=== PATIENT | male | born 1960 | race Caucasian/White ===

== ENCOUNTER → 2020-10-24 10:07 | Outpatient (CLI) | payer BC, SELFPAY ==
[2020-10-25 19:00] LABS: SARS-CoV-2 RNA PCR Negative
== END ==
PROVIDERS: Internal Medicine Gastroenterology; PCP Internal Medicine; Visit Provider Internal Medicine
DX: Z20.822 Contact with and (suspected) exposure to COVID-19 (principal)
CPT/HCPCS: C9803; U0003; U0005

== ENCOUNTER → 2020-10-29 00:52 | Outpatient (CLI) | payer BC, SELFPAY ==
[2020-10-29 18:32] LABS: SARS-CoV-2 RNA PCR Negative
== END ==
PROVIDERS: PCP Internal Medicine; Visit Provider Internal Medicine Gastroenterology
DX: Z01.812 Encounter for preprocedural laboratory examination (principal); Z20.822 Contact with and (suspected) exposure to COVID-19
CPT/HCPCS: C9803; U0003; U0005

== ENCOUNTER 2020-11-01 01:33 | Day surgery (SDC) | payer BC, SELFPAY ==
[2020-10-21 12:06] VITALS: BMI 24.3
[2020-11-01 07:00] VITALS: BP 132/96; PULSE 90; RESP 20; TEMP 36.4; O2SAT 96; BMI 24.0
--- NOTE | 2020-11-01 07:14 | P.HP_ITS ---
History of Present Illness History of Present Illness Consent: Risks, benefits, and alternatives have been discussed and questions answered. Patient agrees to proceed with procedure. Chief complaint: family hx of colon CA, Neoplasm Screening Narrative: Jamel Cole is a 60 year old male here for colon cancer screening. His father from colon cancer Review of Systems Review of Systems: All systems reviewed & are unremarkable except as noted in HPI and below [facility] Social History Social History Smoking status: Never smoker Alcohol intake: never Substance use: never Substance use type: does not use Living arrangements: with family Meds Home Medications and Allergies Home Medications Medication Instructions Recorded Confirmed Type No Home Medications 10/21/20 10/21/20 History Allergies Allergy/AdvReac Type Severity Reaction Status Date / Time No Known Allergies Allergy Mild Verified 11/01/20 06:58 Vital Signs Vital Signs - 24 hr 11/01/20 07:00 Temperature 36.4 C Pulse Rate 90 Respiratory Rate 20 Blood Pressure 132/96 H Pulse Oximetry 96 Exam Resp: Auscultation: clear to auscultation bilaterally Cardio: Rate: regular rate Rhythm: regular rhythm GI: GI Palp: Yes Soft to palpation and No Tenderness to palpation present (GI) Assessment and Plan Assessment and plan (1) Colon cancer screening: Code(s): Z12.11 - Encounter for screening for malignant neoplasm of colon Status: Acute Assessment and Plan: Colonoscopy with possible biopsy or polypectomy or cautery or injection of substances.
--- NOTE | 2020-11-01 07:16 | WPDANESEPPF ---
Anes - Initial Pre Proc Eval Procedure: Operation Date: 11/01/20 08:00 Proposed Procedures p Screening Colonoscopy - Baltazar Perez MD Date/Time: 11/01/20 07:16 Surgeon: Baltazar Perez MD Pre Op Diagnosis: family hx of colon CA, Neoplasm Screening Patient Data Age: 60 Gender: M Height: 5 ft 11 in Weight: 78.4 kg Last Vital Signs Temp 36.4 C 11/01/20 07:00 Pulse 90 11/01/20 07:00 Resp 20 11/01/20 07:00 BP 132/96 H 11/01/20 07:00 Pulse Ox 96 11/01/20 07:00 Allergies Allergy/AdvReac Type Severity Reaction Status Date / Time No Known Allergies Allergy Mild Verified 11/01/20 06:58 Home Medications Medication Instructions Recorded Confirmed Type No Home Medications 10/21/20 10/21/20 History Patient hx anesthesia problems: none Family hx anesthesia problems: none [facility] Past Medical History Medical History (Updated 11/01/20 @ 07:17 by Fuad Mcgraw MD) Hepatitis C Social History Social History Smoking status: Never smoker Alcohol intake: never Substance use: never Substance use type: does not use Living arrangements: with family Anes - Eval Final PreProcedure Day of Procedure 11/01/20 07:16 Patient weight: normal Heart: regular rate and rhythm Lungs: clear to auscultation Airway: Mallampati scale class II Neurological: alert and oriented Last oral intake: >/= 8 hours ASA classification: II Emergent: no Anesthetic plan: proceed Anesthesia type and monitoring: general GIVS and standard monitoring Informed Consent: The patient's anesthetic plan and its attendant risks and benefits were discussed with the patient/family/POA. Questions were solicited and answers provided to the satisfaction of the patient/family/POA.
[2020-11-01] MEDS: LACTATED RINGERS 1,000 ML 150 ML IV CONT (07:21)
[2020-11-01 08:10] VITALS: BP 112/77; PULSE 88; RESP 21; O2SAT 97
[2020-11-01 08:20] VITALS: BP 127/90; PULSE 77; RESP 21; O2SAT 99
[2020-11-01 08:30] VITALS: BP 142/98; PULSE 70; RESP 24; O2SAT 99
== END 2020-11-01 08:38 | disposition home or self-care (01) ==
PROVIDERS: PCP Internal Medicine; Visit Provider Internal Medicine Gastroenterology
PROC: 0DJD8ZZ Inspection of Lower Intestinal Tract, Via Natural or Artificial Opening Endoscopic (ICD-10-PCS; CPT 45378; principal; 2020-11-01 08:00)
DX: Z12.11 Encounter for screening for malignant neoplasm of colon (principal); D12.4 Benign neoplasm of descending colon; K64.8 Other hemorrhoids; Z80.0 Family history of malignant neoplasm of digestive organs
CPT/HCPCS: 45380; 88305; J2704; J7120

== ENCOUNTER 2022-10-27 12:44 | Outpatient (CLI) | payer BC, SELFPAY ==
--- NOTE | 2022-10-27 17:39 | P.PCNPFT_ITS ---
PFT Procedure Performed PFT Procedure Performed Plethysmography (Lung Vol) Diffusing Cap (DLCO) Flow Vol Loop Spirometry w/o Bronchodil PFT Interpretation This is a pulmonary function test with spirometry, plethysmography and diffusing capacity. The test was performed and results interpreted in accordance with the 2019 and 2005 ATS/ERS Task Force guidelines respectively using the Global Lung Function Initiative-2012 reference equations. Patient demonstrated good effort and cooperation. Reproducibility criteria were met. The quality of the spirometry maneuver was Grade A. Findings: Spirometry: The expiratory flow tracing demonstrates a mid expiratory plateau in airflow creating a mild convex inflection referred to as the knee pattern. This was reproducible on all 4 efforts. The contour the inspiratory flow tracing is normal. The FVC is 5.07 L, 117% predicted. The FEV1 is 3.75 L, 113% predi cted. The FEV1: FVC ratio is 74%. Plethysmography: The total lung capacity is 7.52 L, 111% predicted. The functional residual capacity is 3.99 L, 112% predicted. The residual volume is 2.12 L, 94% predicted. Diffusion capacity: The diffusing capacity unadjusted for hemoglobin and carboxyhemoglobin is 26.4, 97% predicted. The diffusing capacity adjusted for alveolar volume is 3.97, 95% predicted. Impression: The expiratory flow tracing demonstrates a reproducible mid expiratory plateau in airflow creating a convex inflection referred to as the knee pattern in 4 of 4 efforts. This pattern can be a normal variant or pathologic and has been attributed to a choke point section of the bronchial tree. The normal variant is more common in younger female patients, decreases with age and is more pronounced in the post bronchodilator efforts. The pattern has also been described with kyphosis, kyphoscoliosis, central obstructing masses, and post lung transplantation. Clinical correlation is recommended. Otherwise, the spirometry is normal without evidence of an obstructive abnormality. The lung volumes are normal. The diffusing capacity is normal. There are no prior studies for comparison
== END 2022-10-27 12:45 | disposition home or self-care (01) ==
LOC: ANHPFT 12:45
PROVIDERS: PCP Internal Medicine; Visit Provider Internal Medicine
DX: R05.3 Chronic cough (principal); R94.2 Abnormal results of pulmonary function studies
CPT/HCPCS: 94375; 94726; 94729